=== PATIENT | female | born 1990 | race Caucasian/White ===

== ENCOUNTER 2017-01-16 17:20 | Emergency (ER) | payer MEDICAID ==
[2017-01-16 17:45] VITALS: BP 145/96
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
[2017-01-16] MEDS ORDERED: Acetaminophen 500 MG Tab PO ONE (19:16)
[2017-01-16] MEDS ORDERED: metroNIDAZOLE 250 MG Tab PO ONE (19:17)
== END 2017-01-16 20:00 | disposition home or self-care (01) ==
LOC: JP.ED 17:20
DX: N76.0 Acute vaginitis (principal); F41.9 Anxiety disorder, unspecified; F17.210 Nicotine dependence, cigarettes, uncomplicated; Z88.0 Allergy status to penicillin; Z79.899 Other long term (current) drug therapy
CPT/HCPCS: 81001; 81025; 87210; 87491; 87591; 99283; 99284; A9270

== ENCOUNTER 2019-02-13 17:51 | Emergency (ER) | payer MEDICAID ==
[2019-02-13 18:05] VITALS: BP 154/102
--- NOTE | 2019-02-13 18:43 | EDM.PDOC ---
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 She's had some abnormal bleeding recently thought to be her periods and last was a couple of days ago but then today she started bleeding again. She went to clinic and an hCG was positive. Quantitative hCG was 255. She had a little cramping before but none now. 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 Overall she has lost just a small amount of blood over the past week. There are no concerns for anemia. 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: , Other (See Below) Other COMMERCIAL ACCOUNT EXECUTIVE History: ovarian cysts Musculoskeletal History: Reports: Back Pain, Chronic Neurological History: Reports: Concussion, Head Trauma Psychiatric History: Reports: Anxiety, Panic Attack Dermatologic History: Reports: Other (See Below) Other Dermatologic History: hives - Infectious Disease History Infectious Disease History: Reports: Chicken Pox - Past Surgical History Head Surgeries/Procedures: Reports: None Cardiovascular Surgical History: Reports: None Neurological Surgical History: Reports: None Musculoskeletal Surgical History: Reports: None Dermatological Surgical History: Reports: None Social & Family History - Tobacco Use Smoking Status *Q: Current Every Day Smoker Years of Tobacco use: 15 Packs/Tins Daily: 0.5 - Caffeine Use Caffeine Use: Reports: Coffee - Recreational Drug Use Recreational Drug Use: Yes Drug Use in Last 12 Months: Yes Recreational Drug Type: Reports: Marijuana/Hashish Recreational Drug Use Frequency: Daily ED ROS GENERAL - Review of Systems Review Of Systems: ROS reveals no pertinent complaints other than HPI. ED EXAM - Physical Exam Exam: See Below Exam Limited By: No Limitations General Appearance: Alert, WD/WN, Mild Distress (90s a little bit anxious and occasionally teary-eyed) GI/Abdominal Exam: Other (Abdominal and pelvic exams were not done on this lady since the bleeding is very very light and 50 expected to be very early .) Course - Vital Signs Last Recorded V/S: Last Vital Signs Temp 36.4 C 02/13/19 18:08 Pulse 120 H 02/13/19 18:08 Resp 16 02/13/19 18:08 BP 154/102 H 02/13/19 18:08 Pulse Ox 99 02/13/19 18:08 Departure - Departure Time of Disposition: 18:41 Disposition: Home, Self-Care 01 Condition: Fair Clinical Impression: Threatened - Discharge Information Referrals: Marian Martinez PA-C [Primary Care Provider] - Additional Instructions: The term threatened is just a medical term for a threatened miscarriage. The quantitative beta hCG was positive at 255 which is consistent with a very early . This hormone double about every 2 days so by repeating it in 2 days this will be a pretty good in medication whether or not this is a viable . You are being referred to family practice clinic on Monday and plan to have the blood test done before clinic. If between now and then you started having really heavy bleeding then be sure to see a doctor or return to the emergency department.
== END 2019-02-13 18:52 | disposition home or self-care (01) ==
LOC: JP.ED 17:51
DX: O20.0 Threatened abortion (principal); O99.330 Smoking (tobacco) complicating pregnancy, unspecified trimester; F17.210 Nicotine dependence, cigarettes, uncomplicated; Z88.0 Allergy status to penicillin
CPT/HCPCS: 99283

== ENCOUNTER 2019-04-13 07:32 | Emergency (ER) | payer MEDICAID ==
[2019-04-13 07:46] VITALS: BP 150/91; PULSE 120
[2019-04-13] MEDS ORDERED: Acetaminophen 325 MG Tab PO ONE (08:08)
[2019-04-13] MEDS ORDERED: oxyCODONE 5 MG Tab PO ONE (08:09)
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
--- NOTE | 2019-04-13 08:56 | CRLCR ---
INDICATION: pain deformity COMPARISON: None. FINDINGS: Three views of the left wrist and 2 views of the left forearm demonstrate comminuted displaced fractures of the distal radius and ulna. There is intra-articular extension of the radius fracture. There is approximately 1 shaft width dorsal displacement of the distal fragments relative to the proximal. The carpus remains intact. There is soft tissue swelling about the wrist. - IMPRESSION: 1. Comminuted displaced intra-articular distal radius fracture. 2. Displaced distal ulna fracture. Dictated by Kamron Mcclellan MD @ 04/13/2019 8:55:22 AM Dictated by: Kamron Mcclellan MD @ 04/13/2019 08:55:29 (Electronically Signed)
--- NOTE | 2019-04-13 08:58 | CRLCR ---
INDICATION: trauma COMPARISON: None. FINDINGS: Three views of the left wrist and 2 views of the left forearm demonstrate comminuted displaced fractures of the distal radius and ulna. There is intra-articular extension of the radius fracture. There is approximately 1 shaft width dorsal displacement of the distal fragments relative to the proximal. The carpus remains intact. There is soft tissue swelling about the wrist. - IMPRESSION: 1. Comminuted displaced intra-articular distal radius fracture. 2. Displaced distal ulna fracture. Dictated by Kamron Mcclellan MD @ 04/13/2019 8:55:59 AM Dictated by: Kamron Mcclellan MD @ 04/13/2019 08:56:06 (Electronically Signed)
== END 2019-04-13 10:30 ==
LOC: JP.ED 07:32
DX: S52.572A Other intraarticular fracture of lower end of left radius, initial encounter for closed fracture (principal); S52.602A Unspecified fracture of lower end of left ulna, initial encounter for closed fracture; F41.9 Anxiety disorder, unspecified; F17.210 Nicotine dependence, cigarettes, uncomplicated; Z88.0 Allergy status to penicillin; W18.40XA Slipping, tripping and stumbling without falling, unspecified, initial encounter; Y92.89 Other specified places as the place of occurrence of the external cause
CPT/HCPCS: 73090; 73110; 99284; A9270

== ENCOUNTER 2019-04-16 19:55 | Emergency (ER) | payer MEDICAID ==
[2019-04-16 20:11] VITALS: BP 186/81; PULSE 127
[2019-04-16] MEDS ORDERED: Ketorolac 60 MG/2 ML SDV IM ONE (20:18)
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
== END 2019-04-16 20:43 | disposition home or self-care (01) ==
LOC: JP.ED 19:55
DX: M79.642 Pain in left hand (principal); M25.532 Pain in left wrist; Z88.0 Allergy status to penicillin; F17.210 Nicotine dependence, cigarettes, uncomplicated
CPT/HCPCS: 96372; 99283; J1885

== ENCOUNTER 2019-04-20 16:09 | Emergency (ER) | payer MEDICAID ==
[2019-04-20 16:25] VITALS: BP 150/92; PULSE 96
[2019-04-20] MEDS ORDERED: fentaNYL 100 MCG/2 ML SDV IM ONE (16:48)
--- NOTE | 2019-04-20 16:56 | EDM.PDOC ---
ED HPI GENERAL MEDICAL PROBLEM - General Chief Complaint: Upper Extremity Injury/Pain Stated Complaint: NUMBNESS IN LEFT THUMB Time Seen by Provider: 04/20/19 16:40 Source of Information: Reports: Patient, Family, Old Records, RN Notes Reviewed History Limitations: Reports: No Limitations - History of Present Illness INITIAL COMMENTS - FREE TEXT/NARRATIVE: 28-year-old female presents emergency department today complaint of left wrist pain, she is approximately 7 days postop from an ORIF of the left wrist she was initially started for pain control with hydrocodone as she is out of that medication reports the emergency department on our April 16 for inadequate pain control was being treated with combination Motrin Tylenol she reports the emergency department today with increasing pain and swelling in the left wrist. 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 Musculoskeletal History: Reports: Back Pain, Chronic, Fracture Neurological History: Reports: Concussion, Head Trauma Psychiatric History: Reports: Anxiety, Panic Attack Dermatologic History: Reports: Other (See Below) Other Dermatologic History: hives - Infectious Disease History Infectious Disease History: Reports: Chicken Pox - Past Surgical History Head Surgeries/Procedures: Reports: None HEENT Surgical History: Reports: None Cardiovascular Surgical History: Reports: None Neurological Surgical History: Reports: None Musculoskeletal Surgical History: Reports: ORIF Dermatological Surgical History: Reports: None Social & Family History - Family History Family Medical History: Noncontributory - Tobacco Use Smoking Status *Q: Current Every Day Smoker Years of Tobacco use: 15 Packs/Tins Daily: 0.5 - Caffeine Use Caffeine Use: Reports: Soda Review of Systems - Review of Systems Review Of Systems: See Below Constitutional: Reports: No Symptoms Musculoskeletal: Reports: Hand Pain ED EXAM, GENERAL - Physical Exam Exam: See Below Free Text/Narrative:: Examination of the left wrist the cast is intact, she has full range of motion of all digits skin color is yellow there is delayed capillary refill, Exam Limited By: No Limitations General Appearance: Alert, WD/WN, No Apparent Distress Course - Vital Signs Last Recorded V/S: Last Vital Signs Temp 98.3 F 04/20/19 16:37 Pulse 96 04/20/19 16:37 Resp 14 04/20/19 16:37 BP 150/92 H 04/20/19 16:37 Pulse Ox 99 04/20/19 16:37 - Orders/Labs/Meds Meds: Medications Discontinued Medications Generic Name Dose Route Start Last Admin Trade Name Savi PRN Reason Stop Dose Admin Fentanyl 50 mcg 04/20/19 16:48 Sublimaze IM 04/20/19 16:49 ONETIME ONE Departure - Departure Time of Disposition: 16:55 Disposition: Home, Self-Care 01 Condition: Fair Clinical Impression: Inadequate pain control - Discharge Information Referrals: PCP,None [Primary Care Provider] - Additional Instructions: Use hydrocodone as needed for pain control, please follow-up with orthopedics at [facility] Juan Diego Mayo - Assessment/Plan Plan: Assessment Acuity = acute Site and laterality = left wrist pain complicated in a patient 7 days postop from left wrist ORIF Etiology = unknown Manifestations = edema Location of injury = Home Lab values = none Plan Called discussed case with orthopedics on-call [place] at 1650 recommended volar splint this was modified we did a bivalve with the original cast to remain the positioning of the original cast relieving the pressure. She was given fentanyl IM 50 mics one time in the ED prescription written for hydrocodone 5/325 one tab by mouth 3 times a day when necessary total #10 she will have a follow-up appointment with orthopedics on Monday This note was dictated using [employer] voice recognition software please call with any questions on syntax or grammar.
== END 2019-04-20 17:38 | disposition home or self-care (01) ==
LOC: JP.ED 16:09
DX: M25.532 Pain in left wrist (principal); F17.210 Nicotine dependence, cigarettes, uncomplicated; Z88.0 Allergy status to penicillin
CPT/HCPCS: 96372; 99283; J3010

== ENCOUNTER 2021-02-10 18:28 | Emergency (ER) | payer MEDICAID ==
[2021-02-10 18:46] VITALS: BP 178/103; PULSE 116
--- NOTE | 2021-02-10 19:11 | EDM.PDOC ---
ED HPI GENERAL MEDICAL PROBLEM - General Chief Complaint: Upper Extremity Injury/Pain Stated Complaint: BLOOD DRAW ON MONDAY, SHARP PAIN IN HAND Time Seen by Provider: 02/10/21 18:57 Source of Information: Reports: Patient History Limitations: Reports: No Limitations - History of Present Illness INITIAL COMMENTS - FREE TEXT/NARRATIVE: Alireza is a 30-year-old female presenting to the ED with concerns of numbness and pain going down her left thumb since undergoing a phlebotomy 2 days ago. Patient states that she had labs drawn from her right antecubital space and when the photo lab manager raz the blood she felt sharp pain going down to her thumb. Since then the patient has had continued pain down to the thumb which does not appear to be positional but does worsen with flexion of the wrist or grasping of the hand. 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 She appears quite anxious and tearful but she attributes this to also getting a hormone shot on Monday. She likely does have some PTSD due to the previous nerve injury on the left hand. 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 Musculoskeletal History: Reports: Back Pain, Chronic, Fracture Neurological History: Reports: Concussion, Head Trauma Psychiatric History: Reports: Anxiety, Panic Attack Dermatologic History: Reports: Other (See Below) Other Dermatologic History: hives - Infectious Disease History Infectious Disease History: Reports: Chicken Pox - Past Surgical History Head Surgeries/Procedures: Reports: None HEENT Surgical History: Reports: None Cardiovascular Surgical History: Reports: None Neurological Surgical History: Reports: None Musculoskeletal Surgical History: Reports: ORIF Dermatological Surgical History: Reports: None Social & Family History - Family History Family Medical History: No Pertinent Family History - Caffeine Use Caffeine Use: Reports: Coffee, Soda, Tea Review of Systems - Review of Systems Review Of Systems: See Below Constitutional: Reports: No Symptoms Musculoskeletal: Reports: Arm Pain (Right antecubital pain from phlebotomy), Hand Pain (Right thumb pain) Skin: Reports: No Symptoms Neurological: Reports: Paresthesia (Paresthesia and pain in the right thumb that increases with grasp of the hand and flexion of the wrist) Psychiatric: Reports: Anxiety ED EXAM, GENERAL - Physical Exam Exam: See Below Exam Limited By: No Limitations General Appearance: Alert, Anxious, Mild Distress Peripheral Pulses: 2+: Radial (R) Extremities: Normal Range of Motion (Increased pain with flexion of the right wrist or grasp of the right hand causing sharp pain in the right thumb.), Arm Pain (There is a palpable hematoma in the right antecubital space alongside the vein and adjacent to the radial nerve. Palpation of this area exacerbates pain down the right thumb and medial hand reproducing symptoms.) Neurological: Alert, Oriented, Normal Cognition, No Motor/Sensory Deficits, Other (Certainly appears that there is irritation of the right radial nerve arising from hematoma in the antecubital space.) Psychiatric: Anxious Course - Vital Signs Last Recorded V/S: Last Vital Signs Temp 36.5 C 02/10/21 19:03 Pulse 116 H 02/10/21 19:03 Resp 16 02/10/21 19:03 BP 178/103 H 02/10/21 19:03 Pulse Ox 100 02/10/21 19:03 - Re-Assessments/Exams Free Text/Narrative Re-Assessment/Exam: 02/10/21 19:23 it appears the right thumb pain is arising from irritation of the radial nerve secondary to hematoma in the antecubital space. I recommended using packs to the area to increase circulation and speed up the reabsorption process. I also recommended modest use of an NSAID like ibuprofen or Aleve to help reduce the inflammation. I reassured the patient that this will likely go away in the next 3 to 5 days and should not result in any permanent nerve damage like she experienced in the left hand. Indications return to the ED were discussed. Patient was discharged in satisfactory condition. Departure - Departure Time of Disposition: 19:07 Disposition: Home, Self-Care 01 Clinical Impression: Hematoma following procedure Radial nerve irritation Qualifiers: Laterality: right Qualified Code(s): G56.31 - Lesion of radial nerve, right upper limb - Discharge Information Instructions: Hematoma, [id number] Referrals: Marian Martinez PA-C [Primary Care Provider] - Forms: ED Department Discharge Care Plan Goals: Rocio, I am sorry that you are suffering from this hematoma in your right antecubital space. It is applying pressure and inflammation to your radial nerve causing pain in your thumb. I understand that you had permanent nerve damage in the left upper extremity, but this is not the same situation and I believe this will resolve in the course of a week. To increase reabsorption of the hematoma I would recommend applying warm packs to the area over the next couple of days. I would also recommend taking modest doses of an anti- inflammatory like Aleve 2 tablets 12 hours apart or ibuprofen 3 tablets every 6 hours for the next 4 to 5 days which will reduce the inflammation and likely lessen the degree of symptoms you are experiencing in your right thumb. Should symptoms continue to worsen, please return for reevaluation. I suspect that when they raz your blood they went through the vein and blood came out the back of the vein around the radial nerve causing swelling and compression of the nerve. This was likely why you felt the sharp jolt when they raz your blood on Monday. Feel free to contact us if you have any questions. Sepsis Event Note (ED) - Evaluation Sepsis Screening Result: No Definite Risk - Focused Exam Vital Signs: Vital Signs Temp Pulse Resp BP Pulse Ox 02/10/21 19:03 36.5 C 116 H 16 178/103 H 100 02/10/21 18:44 36.5 C 116 H 16 178/103 H 100 - Problem List & Annotations (1) Hematoma following procedure SNOMED Code(s): 289060679 Code(s): [id number] - Status: Acute Priority: Low Current Visit: Yes (2) Radial nerve irritation SNOMED Code(s): 79995541, 842796763 Code(s): G56.30 - LESION OF RADIAL NERVE, UNSPECIFIED UPPER LIMB Status: Acute Priority: Low Current Visit: Yes Qualifiers: Laterality: right Qualified Code(s): G56.31 - Lesion of radial nerve, right upper limb - Problem List Review Problem List Initiated/Reviewed/Updated: Yes
== END 2021-02-10 19:28 | disposition home or self-care (01) ==
LOC: JP.ED 18:28
DX: M96.841 Postprocedural hematoma of a musculoskeletal structure following other procedure (principal); G56.31 Lesion of radial nerve, right upper limb; Z88.0 Allergy status to penicillin
CPT/HCPCS: 99283

== ENCOUNTER 2021-04-24 17:22 | Emergency (ER) | payer MEDICAID ==
[2021-04-24 17:47] VITALS: BP 159/118; PULSE 152
--- NOTE | 2021-04-24 17:47 | EDM.PDOC ---
ED HPI GENERAL MEDICAL PROBLEM - General Chief Complaint: General Stated Complaint: COUGH, FATIGUE, LOSS OF SMELL AND TASTE Time Seen by Provider: 04/24/21 17:47 Source of Information: Reports: Patient, RN Notes Reviewed History Limitations: Reports: No Limitations - History of Present Illness INITIAL COMMENTS - FREE TEXT/NARRATIVE: Rocio presents today for complaints of fatigue, generalized body aches, headache, cough with scant mucus production, SOB, diarrhea, nausea, emesis x 2 and chills. She has been exposed to others that have COVID. Symptom onset 04/18/2021. She denies chest pain, palpitations, syncope or other concerns. She reports anxiety at times and when coming to the hospital. 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 Musculoskeletal History: Reports: Back Pain, Chronic, Fracture Neurological History: Reports: Concussion, Head Trauma Psychiatric History: Reports: Anxiety, Depression, Panic Attack Dermatologic History: Reports: Urticaria Other Dermatologic History: hives - Infectious Disease History Infectious Disease History: Reports: Chicken Pox, Influenza - Past Surgical History Head Surgeries/Procedures: Reports: None HEENT Surgical History: Reports: None Cardiovascular Surgical History: Reports: None Neurological Surgical History: Reports: None Musculoskeletal Surgical History: Reports: ORIF Dermatological Surgical History: Reports: None Social & Family History - Family History Family Medical History: No Pertinent Family History - Tobacco Use Tobacco Use Status *Q: Current Every Day Tobacco User Years of Tobacco use: 15 Packs/Tins Daily: 0.5 - Caffeine Use Caffeine Use: Reports: Coffee, Soda, Tea ED ROS GENERAL - Review of Systems Review Of Systems: See Below Constitutional: Reports: Fever, Chills, Malaise, Decreased Appetite. Denies: Weakness, Fatigue, Night Sweats, Diaphoresis, Weight Loss, Weight Gain HEENT: Reports: Throat Pain. Denies: Dental Pain, Ear Discharge, Ear Pain, Eye Discharge, Eye Pain, Nose Pain, Rhinitis, Sinus Problem, Throat Swelling, Vertigo, Vision Change Respiratory: Reports: Shortness of Breath, Cough, Sputum (scant amount - does not know what color). Denies: Wheezing, Pleuritic Chest Pain, Hemoptysis Cardiovascular: Reports: Dyspnea on Exertion. Denies: Chest Pain, Blood Pressure Problem, Claudication, Edema, Lightheadedness, Orthopnea, Palpitations, PND, Syncope Endocrine: Reports: No Symptoms GI/Abdominal: Reports: Diarrhea, Decreased Appetite, Nausea, Vomiting. Denies: Abdominal Pain, Black Stool, Bloody Stool, Constipation, Difficulty Swallowing, Distension, Flatus, Hematochezia, Melena, Mucous in Stool : Reports: No Symptoms Musculoskeletal: Reports: Muscle Pain, Other (generalized body aches and pain) Skin: Reports: No Symptoms Neurological: Reports: Headache. Denies: Confusion, Dizziness, Numbness, Paresthesia, Seizure, Syncope, Tingling, Tremors, Trouble Speaking, Difficulty Walking, Weakness, Gait Disturbance Psychiatric: Reports: Anxiety Hematologic/Lymphatic: Reports: No Symptoms Immunologic: Reports: No Symptoms ED EXAM, GENERAL - Physical Exam Exam: See Below Exam Limited By: No Limitations General Appearance: Alert, WD/WN, Anxious, Mild Distress Eye Exam: Bilateral Eye: EOMI, Normal Inspection, PERRL Ears: Normal External Exam, Normal Canal, Hearing Grossly Normal, Normal TMs Nose: Normal Inspection, Normal Mucosa, No Blood Throat/Mouth: Normal Inspection, Normal Lips, Normal Teeth, Normal Gums, Normal Oropharynx, Normal Voice, No Airway Compromise Head: Atraumatic, Normocephalic Neck: Normal Inspection, Supple, Non-Tender, Full Range of Motion. No: Lymphadenopathy (R), Lymphadenopathy (L) Respiratory/Chest: No Respiratory Distress, Lungs Clear, Normal Breath Sounds, No Accessory Muscle Use, Chest Non-Tender. No: Crackles, Rales, Rhonchi, Wheezing, Stridor, Pleural Rub, Accessory Muscle Use, Retractions, Splinting Cardiovascular: Normal Peripheral Pulses, No Edema, No Gallop, No Murmur, No Rub, Tachycardia Peripheral Pulses: 4+: Radial (L), Radial (R), Dorsalis Pedis (L), Dorsalis Pe dis (R) GI/Abdominal: Normal Bowel Sounds, Soft, Non-Tender, No Organomegaly, No Distention, No Abnormal Bruit, No Mass. No: Guarding, Rigid, Rebound, Tender (Female) Exam: Deferred Rectal (Female) Exam: Deferred Back Exam: Normal Inspection, Full Range of Motion. No: CVA Tenderness (R), CVA Tenderness (L) Extremities: Normal Inspection, Normal Range of Motion, Non-Tender, No Pedal Edema, Normal Capillary Refill Neurological: Alert, Oriented, CN II-XII Intact, Normal Cognition, Normal Gait, Normal Reflexes, No Motor/Sensory Deficits Psychiatric: Normal Affect, Normal Mood Skin Exam: Warm, Dry, Intact, Normal Color, No Rash Lymphatic: No Adenopathy Course - Vital Signs Last Recorded V/S: Last Vital Signs Temp 36.8 C 04/24/21 17:41 Pulse 152 H 04/24/21 17:41 Resp 19 04/24/21 17:41 BP 159/118 H 04/24/21 17:41 Pulse Ox 96 04/24/21 17:41 Blood pressure down to 130/95, Heart rate to 130 bpm, sinus tach. Oxygen saturation remains 96% and higher. - Orders/Labs/Meds Labs: Laboratory Tests 04/24/21 Range/Units 17:59 Influenza Type A RNA Negative (NEGATIVE) RSV RNA (INAAT) Negative (NEGATIVE) Influenza Type B RNA Negative (NEGATIVE) SARS-CoV-2 RNA ([facility]) Positive H (NEGATIVE) COVID +, patient notified. Meds: Medications Discontinued Medications Generic Name Dose Route Start Last Admin Trade Name Savi PRN Reason Stop Dose Admin Acetaminophen 1,000 mg 04/24/21 18:10 04/24/21 18:18 Acetaminophen 500 Mg Tab PO 04/24/21 18:11 1,000 mg ONETIME ONE Administration Albuterol 0 gm 04/24/21 18:11 04/24/21 18:18 Albuterol 8 Gm Inhaler INH 04/24/21 18:12 1 puff ONETIME ONE Administration Alprazolam 1 mg 04/24/21 18:10 04/24/21 18:18 Alprazolam 0.25 Mg Tab PO 04/24/21 18:11 1 mg ONETIME ONE Administration Ibuprofen 800 mg 04/24/21 18:10 04/24/21 18:18 Ibuprofen 800 Mg Tab PO 04/24/21 18:11 800 mg ONETIME ONE Administration - Re-Assessments/Exams Free Text/Narrative Re-Assessment/Exam: 04/24/21 18:50 Reviewed, vital signs and +COVID with patient and Dr. Kovacs. Patient will be discharged to home with COVID care instructions. Patient and Dr. Kovacs in agreement with plan. Departure - Departure Time of Disposition: 18:51 Disposition: Home, Self-Care 01 Condition: Good Clinical Impression: COVID-19, Anxiety - Discharge Information *PRESCRIPTION DRUG MONITORING PROGRAM REVIEWED*: Not Applicable *COPY OF PRESCRIPTION DRUG MONITORING REPORT IN PATIENT JASON: Not Applicable Instructions: COVID-19: What to Do If You Are Sick- [facility] (09/02/2020) Referrals: Marian Martinez PA-C [Primary Care Provider] - Forms: ED Department Discharge Additional Instructions: Positive for COVID. Quarantine for 10 days. You can take acetaminophen and ibuprofen for pain/fever as needed. Use albuterol inhaler 2 puffs up to four times a day for wheezing. Try to eat protein to help your body and improve strength. Drink water/gatorade per your normal. Walk frequently when awake. Sleep on your stomach or on your side to help with your breathing if you are feeling short of breath. You can have a family member obtain a pulse oximeter to monitor your oxygen level. If your oxygen level is below 90% on a consistent basis then you should return to the emergency room. Take your routine medications as directed. Telephone your primary provider on Monday and ask about monoclonal antibody IV and see if you qualify. Return to emergency room as needed. Sepsis Event Note (ED) - Evaluation Sepsis Screening Result: No Definite Risk - Focused Exam Vital Signs: Vital Signs Temp Pulse Resp BP Pulse Ox 04/24/21 17:41 36.8 C 152 H 19 159/118 H 96 04/24/21 17:38 36.8 C 152 H 19 159/118 H 96 - Assessment/Plan Assessment:: COVID-19 No respiratory distress Anxiety Plan: Patient positive for COVID. Take acetaminophen and ibuprofen for pain/fever as needed. Use albuterol inhaler 2 puffs up to four times a day for wheezing. Try to eat protein to help your body and improve strength. Drink water/gatorade per your normal. Walk frequently when awake. Sleep on stomach or on side to help with breathing if feeling short of breath. Have a family member obtain a pulse oximeter to monitor oxygen level. If oxygen level is below 90% on a consistent basis then return to the emergency room. Take your medications as directed. Telephone primary provider on Monday and ask about monoclonal antibody IV and se e if you qualify. Return to emergency room as needed.
[2021-04-24] MEDS ORDERED: ALPRAZolam 0.25 MG Tab PO ONE (18:10)
[2021-04-24] MEDS ORDERED: Acetaminophen 500 MG Tab PO ONE (18:10)
[2021-04-24] MEDS ORDERED: Ibuprofen 800 MG Tab PO ONE (18:10)
[2021-04-24] MEDS ORDERED: Albuterol 8 GM Inhaler INH ONE (18:11)
[2021-04-24 18:40] LABS: CORONAVIRUS COVID-19 NAA POSITIVE (NEGATIVE)
== END 2021-04-24 19:02 | disposition home or self-care (01) ==
LOC: JP.ED 17:22
DX: U07.1 COVID-19 (principal); F41.9 Anxiety disorder, unspecified; Z72.0 Tobacco use; Z88.0 Allergy status to penicillin; Z79.899 Other long term (current) drug therapy
CPT/HCPCS: 0241U; 94640; 99285; A9270

== ENCOUNTER 2021-07-30 09:14 | Emergency (ER) | payer MEDICAID ==
[2021-07-30 09:31] VITALS: BP 150/105; PULSE 116
== END 2021-07-30 10:33 | disposition home or self-care (01) ==
LOC: JP.ED 09:14
DX: S60.212A Contusion of left wrist, initial encounter (principal); Z72.0 Tobacco use; Z86.16 Personal history of COVID-19; Z88.0 Allergy status to penicillin; Z79.899 Other long term (current) drug therapy; W00.0XXA Fall on same level due to ice and snow, initial encounter
CPT/HCPCS: 73110-LT; 99283

== ENCOUNTER 2021-08-07 14:10 | Emergency (ER) | payer MEDICAID ==
[2021-08-07 14:42] VITALS: BP 144/100; PULSE 100
== END 2021-08-07 15:44 | disposition home or self-care (01) ==
LOC: JP.ED 14:10
DX: M25.532 Pain in left wrist (principal); Z88.0 Allergy status to penicillin; Z72.0 Tobacco use
CPT/HCPCS: 99283